=== PATIENT | female | born 1985 | race Caucasian/White ===

== ENCOUNTER 2024-04-14 07:54 | Emergency (ER) | payer MEDICAID ==
[~2024-04-14] VITALS: Ht 162.6 cm; Wt 89.3 kg
[2024-04-14 08:10] VITALS: BP 139/77; PULSE 93; RESP 16; TEMP 98.7; O2SAT 98
== END 2024-04-14 09:47 | disposition left against medical advice (07) ==
LOC: ER 07:56
DX: R21 Rash and other nonspecific skin eruption (principal); Z53.21 Procedure and treatment not carried out due to patient leaving prior to being seen by health care provider